=== PATIENT | female | born 1955 | race Caucasian/White ===

== ENCOUNTER → 2017-02-19 | Outpatient (CLI) | payer OTHER ==
[~2017-02-19] MED LIST: 12 HOUR DECONG120 M1 PO; ANTACID325 MG PO; ASPIRIN325 MG PO; ASPIRIN81 M1 PO; ATORVASTATIN CA40 MG PO; CELEBREX200 MG PO; DOCUSATE SODIU100 MG PO; FLEXERIL10 MG PO; HYDROCODON-ACE1 EAC7 PO; IBUPROFEN800 MG PO; LIPITOR40 MG PO; LOPRESSOR25 MG PO; LORTAB 5-325 M1 EACH PO; MOTRIN800 MG PO; PLAVIX75 MG PO; SIMVASTATIN40 MG PO; STOOL SOFTENER100 M1 PO; STOOL SOFTENER100 MG PO; THERAGRAN1 TABLET PO; TOPROL XL50 MG PO; TRAMADOL HCL50 MG PO; TUMS ULTRA1000 MG PO; TUMS500 MG PO; ZOCOR40 MG PO; [UNRECOGNIZED DRUG - OTHER] PO; [UNRECOGNIZED DRUG - REMARK] PO
== END | disposition home or self-care (01) ==
DX: R26.2 Difficulty in walking, not elsewhere classified (principal); M25.561 Pain in right knee; M25.661 Stiffness of right knee, not elsewhere classified; M17.11 Unilateral primary osteoarthritis, right knee; M62.81 Muscle weakness (generalized); Z74.1 Need for assistance with personal care
CPT/HCPCS: 97161 GP; 97165 GO; 97530 GP; 97537 GO; G8978 GP; G8979 GP; G8980 GP; G8987 GO; G8988 GO; G8989 GO